=== PATIENT | male | born 1955 | race Caucasian/White ===

== ENCOUNTER 2016-12-04 09:36 | Emergency (ER) | payer OTHER ==
[~2016-12-04] VITALS: Wt 79.4 kg
[~2016-12-04 09:36] MED LIST: ALBUTEROL0.09 MG/AC INH; ASPIRIN325 MG PO; CARVEDILOL25 MG PO; COREG12.5 MG PO; COREG6.25 MG PO; IMDUR SA30 MG PO; IMDUR30 MG PO; LIPITOR40 MG PO; LISINOPRIL10 M1 PO; LISINOPRIL5 MG PO; LOPRESSOR25 MG PO; MULTIVITAMIN1 CTB PO; NITROQUICK0.4 MG PO; PLAVIX75 MG PO; SPIRIVA -- 3018 MCG INH; TYLENOL PM; TYLENOL PM EX-1 EACH PO; VALIUM10 MG PO
[2016-12-04 10:04] LABS: BASO # 0.1 10*3/uL (0.0-0.1); BASO % 0.7 % (0.0-1.0); EOS # 0.3 10*3/uL (0.0-0.4); EOS % 3.8 % (1.0-4.0); HEMATOCRIT 43.8 % (42.0-52.0); HEMOGLOBIN 15.1 g/dl (14.0-18.0); LYMPH # 2.2 10*3/uL (1.3-4.4); LYMPH % 31.3 % (27.0-41.0); MEAN CELL VOLUME 90.1 fl (80.0-94.0); MEAN CORPUSCULAR HGB 31.1 pg (27.0-31.0); MEAN CORPUSCULAR HGB CONC 34.5 g/dl (33.0-37.0); MEAN PLATELET VOLUME 9.9 fl (9.6-12.3); MONO # 0.9 10*3/uL (0.1-1.0); MONO % 12.2 % (3.0-9.0); NEUT # 3.7 10*3/uL (2.3-7.9); NEUT % 51.6 % (47.0-73.0); PLATELET COUNT AUTOMATED 176 10*3/uL (130-400); RED BLOOD COUNT 4.86 10*6/uL (4.50-5.90); RED CELL DISTRI WIDTH 13.9 % (0-14.5); WHITE BLOOD COUNT 7.1 10*3/uL (4.8-10.8)
[2016-12-04 10:19] LABS: ALBUMIN 3.8 gm/dl (3.1-4.5); ALKALINE PHOSPHATASE 54 U/L (45-117); BUN 21 mg/dl (7-24); CHLORIDE 106 mmol/L (98-107); CREATININE 1.09 mg/dL (0.70-1.30); MAGNESIUM 1.9 mg/dL (1.5-2.1); POTASSIUM 4.4 mmol/L (3.5-5.1); SGOT/AST 18 IU/L (3-35); SGPT/ALT 40 U/L (12-78); SODIUM 136 mmol/L (136-145); TOTAL PROTEIN 7.1 gm/dL (6.4-8.2)
[2016-12-04 10:26] LABS: TROPONIN I < 0.015 ng/ml (<0.045)
== END 2016-12-04 13:25 | disposition left against medical advice (07) ==
LOC: ED 09:36
PROVIDERS: Emergency Medicine
DX: R07.9 Chest pain, unspecified (principal); I10 Essential (primary) hypertension; E78.5 Hyperlipidemia, unspecified; I25.10 Atherosclerotic heart disease of native coronary artery without angina pectoris; Z53.21 Procedure and treatment not carried out due to patient leaving prior to being seen by health care provider; Z95.810 Presence of automatic (implantable) cardiac defibrillator; Z88.8 Allergy status to other drugs, medicaments and biological substances

== ENCOUNTER → 2017-06-29 | Outpatient (CLI) | payer OTHER | END | disposition home or self-care (01) | LOC: US 09:27 | DX: I70.203 Unspecified atherosclerosis of native arteries of extremities, bilateral legs (principal); I70.412 Atherosclerosis of autologous vein bypass graft(s) of the extremities with intermittent claudication, left leg; I25.10 Atherosclerotic heart disease of native coronary artery without angina pectoris; I25.5 Ischemic cardiomyopathy; R09.89 Other specified symptoms and signs involving the circulatory and respiratory systems; I74.3 Embolism and thrombosis of arteries of the lower extremities; Z95.810 Presence of automatic (implantable) cardiac defibrillator ==

== ENCOUNTER → 2017-08-11 | Outpatient (CLI) | payer OTHER ==
[~2017-08-11] MED LIST changes: +ZETIA10 MG PO
--- NOTE | ~2017-08-11 | ST ---
[place], [place] EXERCISE STRESS TEST REPORT NAME: KEMI MANN [facility] #: [id number] UNIT #: [id number] ROOM: DOCTOR: MELCHOR BLACK MD BIRTHDATE: [birth year] DOS: 08/11/2017 PHARMACOLOGIC STRESS TEST INDICATIONS: History of ischemic cardiomyopathy, preoperative clearance prior to Vascular Surgery. Referred by Dr. Kelly and Dr. Otero. PROCEDURE: The patient was given a rapid infusion of regadenoson 0.4 mg intravenously followed by a saline flush. He experienced breathlessness, a hot sensation and "far away feeling." Symptoms resolved spontaneously. His heart rate increased from 54 to 78 with the infusion. He did not have any diagnostic electrocardiographic changes. Forty seconds after the infusion, he did receive radionuclide IV. IMPRESSION: 1. Well tolerated infusion of regadenoson. 2. Radionuclide administered. Please see the separate imaging report for further details of the patient's stress test results. MELCHOR BLACK MD CM:STRESS:EXERCISE STRESS TEST REPORT [id number] MELCHOR BLACK MD
== END | disposition home or self-care (01) ==
LOC: CARD 02:58
DX: Z01.818 Encounter for other preprocedural examination (principal); I25.10 Atherosclerotic heart disease of native coronary artery without angina pectoris; I25.5 Ischemic cardiomyopathy; I25.2 Old myocardial infarction

== ENCOUNTER → 2018-05-31 | Outpatient (CLI) | payer OTHER ==
[2018-05-31 10:35] LABS: CPK 90 U/L (39-308)
[2018-05-31 10:38] LABS: TROPONIN I < 0.015 ng/ml (<0.045)
== END | disposition home or self-care (01) ==
LOC: LAB 10:02
PROVIDERS: Family Medicine
DX: I42.0 Dilated cardiomyopathy (principal); R07.9 Chest pain, unspecified

== ENCOUNTER 2018-08-28 07:40 | Emergency (ER) | payer OTHER ==
[~2018-08-28] VITALS: Ht 177.8 cm; Wt 79.4 kg
== END 2018-08-28 08:40 | disposition home or self-care (01) ==
LOC: ED 07:40
DX: S80.11XA Contusion of right lower leg, initial encounter (principal); S70.11XA Contusion of right thigh, initial encounter; I73.9 Peripheral vascular disease, unspecified; I25.10 Atherosclerotic heart disease of native coronary artery without angina pectoris; F17.210 Nicotine dependence, cigarettes, uncomplicated; Z79.899 Other long term (current) drug therapy; Z79.82 Long term (current) use of aspirin; Z86.73 Personal history of transient ischemic attack (TIA), and cerebral infarction without residual deficits; Z95.0 Presence of cardiac pacemaker; X50.1XXA Overexertion from prolonged static or awkward postures, initial encounter; Y93.89 Activity, other specified; Y92.89 Other specified places as the place of occurrence of the external cause; Y99.8 Other external cause status

== ENCOUNTER → 2019-02-13 | Outpatient (CLI) | payer OTHER ==
[2019-02-13 10:40] LABS: BILIRUBIN NEGATIVE (NEGATIVE); BLOOD NEGATIVE (NEGATIVE); CLARITY CLEAR (CLEAR); COLOR YELLOW (YELLOW); GLUCOSE NEGATIVE (NEGATIVE); KETONE NEGATIVE (NEGATIVE); LEUKO ESTERASE NEGATIVE (NEGATIVE); NITRITE NEGATIVE (NEGATIVE); SPECIFIC GRAVITY <= 1.005 (1.005-1.030); UROBILINOGEN 0.2 E.U./dl (0.2-1.0)
[2019-02-13 10:43] LABS: BASO # 0.1 10*3/uL (0.0-0.1); BASO % 0.8 % (0.0-1.0); EOS # 0.3 10*3/uL (0.0-0.4); EOS % 4.7 % (1.0-4.0); HEMATOCRIT 44.8 % (42.0-52.0); LYMPH # 2.1 10*3/uL (1.3-4.4); LYMPH % 28.8 % (27.0-41.0); MEAN CELL VOLUME 92.9 fl (80.0-94.0); MEAN CORPUSCULAR HGB 31.1 pg (27.0-31.0); MEAN CORPUSCULAR HGB CONC 33.5 g/dl (33.0-37.0); MEAN PLATELET VOLUME 10.1 fl (9.6-12.3); MONO # 0.8 10*3/uL (0.1-1.0); MONO % 11.1 % (3.0-9.0); NEUT # 3.9 10*3/uL (2.3-7.9); NEUT % 54.2 % (47.0-73.0); PLATELET COUNT AUTOMATED 184 10*3/uL (130-400); RED BLOOD COUNT 4.82 10*6/uL (4.50-5.90); RED CELL DISTRI WIDTH 14.6 % (0-14.5); WHITE BLOOD COUNT 7.3 10*3/uL (4.8-10.8)
[2019-02-13 10:54] LABS: EPITHELIAL CELLS 0-2; WBC 0-2 wbc/hpf (0-5)
[2019-02-13 11:08] LABS: ALKALINE PHOSPHATASE 52 U/L (45-117); BUN 25 mg/dl (7-24); CHLORIDE 109 mmol/L (98-107); CHOLESTEROL 118 mg/dL (<200); CREATININE 1.08 mg/dL (0.70-1.30); FREE T4 1.02 ng/dl (0.76-1.46); HDL CHOLESTEROL 47 mg/dl (40-60); LDL CHOLESTEROL 57 mg/dL (9-159); POTASSIUM 4.5 mmol/L (3.5-5.1); SGOT/AST 19 IU/L (3-35); SGPT/ALT 38 U/L (12-78); SODIUM 139 mmol/L (136-145); TOTAL PROTEIN 7.5 gm/dL (6.4-8.2); TRIGLYCERIDES 70 mg/dl (<150); VLDL CHOLESTEROL 14 mg/dL (6-40)
[2019-02-13 11:12] LABS: THYROID STIM HORMONE (HS) 0.991 uIU/ml (0.358-4.75)
== END | disposition home or self-care (01) ==
LOC: LAB 09:53
PROVIDERS: Internal Medicine
DX: E03.9 Hypothyroidism, unspecified (principal); E78.5 Hyperlipidemia, unspecified; N39.0 Urinary tract infection, site not specified; R73.01 Impaired fasting glucose; Z79.899 Other long term (current) drug therapy

== ENCOUNTER → 2020-06-17 | Outpatient (CLI) | payer OTHER ==
[~2020-06-17] MED LIST changes: +FLOMAX0.4 MG PO
[2020-06-17 10:39] LABS: CHOLESTEROL 110 mg/dL (<200); SGPT/ALT 36 U/L (12-78); TRIGLYCERIDES 73 mg/dl (<150)
[2020-06-17 10:41] LABS: LDL CHOLESTEROL 49 mg/dL (9-159)
== END | disposition home or self-care (01) ==
LOC: CARD 00:42
PROVIDERS: ATTEND Internal Medicine Cardiovascular Disease
DX: I51.7 Cardiomegaly (principal); I51.89 Other ill-defined heart diseases; I25.10 Atherosclerotic heart disease of native coronary artery without angina pectoris; E78.2 Mixed hyperlipidemia; I25.5 Ischemic cardiomyopathy; Z95.810 Presence of automatic (implantable) cardiac defibrillator

== ENCOUNTER 2022-07-19 17:58 | Emergency (ER) | payer OTHER ==
[~2022-07-19] VITALS: Wt 79.4 kg
== END 2022-07-19 19:58 | disposition left against medical advice (07) ==
LOC: ED 17:58
DX: M79.641 Pain in right hand (principal); I25.10 Atherosclerotic heart disease of native coronary artery without angina pectoris; G40.909 Epilepsy, unspecified, not intractable, without status epilepticus; Z53.21 Procedure and treatment not carried out due to patient leaving prior to being seen by health care provider; Z79.899 Other long term (current) drug therapy; Z79.82 Long term (current) use of aspirin; Z95.0 Presence of cardiac pacemaker